=== PATIENT | female | born 1970 | race Caucasian/White ===

== ENCOUNTER 2017-08-03 05:50 | Day surgery (SDC) | payer BC ==
[2017-08-02 11:00] LABS: HEMATOCRIT 43.7 % (34.6-47.8); HEMOGLOBIN 15.1 g/dL (11.7-16.4); WHITE BLOOD COUNT 4.5 x10^3/uL (3.4-10)
[~2017-08-03] VITALS: Ht 167.6 cm; Wt 63.8 kg
[~2017-08-03 05:50] MED LIST: None per pt
[2017-08-03] MEDS ORDERED: GABAPENTIN 300 MG CAPSULE PO ONE (06:11)
[2017-08-03] MEDS ORDERED: LACTATED RINGERS 1,000 ML IV SCH (06:11)
[2017-08-03] MEDS ORDERED: ACETAMINOPHEN 500 MG TABLET PO ONE (06:11)
[2017-08-03 06:24] VITALS: BP 121/91
[2017-08-03 06:41] LABS: HCG UR LOT HCG7030192
[2017-08-03 06:57] LABS: HCG UR OBC PASS
[2017-08-03] MEDS ORDERED: KETAMINE 10 MG/ML, 20ML ONE ×2 (07:00→07:23)
[2017-08-03] MEDS ORDERED: MIDAZOLAM 1 MG/ML, 2ML ONE ×2 (07:00→07:23)
[2017-08-03] MEDS ORDERED: FENTANYL PF 100 MCG/2ML ONE ×4 (07:00→10:06)
[2017-08-03] MEDS ORDERED: LIDOCAINE-MPF 2% ,5ML ONE ×2 (07:02)
[2017-08-03] MEDS ORDERED: PROPOFOL 10 MG/ML, 20ML ONE ×2 (07:02→07:23)
[2017-08-03] MEDS ORDERED: ROCURONIUM 10 MG/ML,10ML ONE ×2 (07:02→07:23)
[2017-08-03] MEDS ORDERED: FLUORESCEIN SODIUM 500 MG/5 ML ONE (07:04)
[2017-08-03] MEDS ORDERED: BUPIVACAINE/PF 0.25% ONE (07:04)
[2017-08-03] MEDS ORDERED: EPHEDRINE 50 MG/ML, 1ML ONE ×3 (07:23→08:08)
[2017-08-03] MEDS ORDERED: NEOSTIGMINE 1 MG/ML, 10ML ONE (07:23)
[2017-08-03] MEDS ORDERED: ONDANSETRON 2MG/ML, 2ML ONE (07:23)
[2017-08-03] MEDS ORDERED: DEXAMETHASONE 4 MG/ML, 1ML ONE (07:23)
[2017-08-03] MEDS ORDERED: CEFAZOLIN 1,000 MG ONE (07:23)
[2017-08-03] MEDS ORDERED: GLYCOPYRROLATE 0.2MG/1ML, 5ML ONE ×3 (07:23→08:03)
[2017-08-03] MEDS ORDERED: BUPIVACAINE/PF 0.25% INFIL ONE (08:04)
[2017-08-03] MEDS ORDERED: MEPERIDINE/PF 25MG/0.5ML IVPush PRN (08:30)
[2017-08-03] MEDS ORDERED: DIAZEPAM 5 MG/ML, 2ML IVPush PRN (08:30)
[2017-08-03] MEDS ORDERED: PROMETHAZINE 25 MG/ML, 1ML IV PRN (08:30)
[2017-08-03] MEDS ORDERED: OXYcodone 5 MG/5 ML ORAL.SOL UDC PO PRN (08:30)
[2017-08-03] MEDS ORDERED: HYDROmorphone 1 MG/ML, 1ML IV PRN (08:30)
[2017-08-03] MEDS ORDERED: ACETAMINOPHEN 650 MG/20.3 ML UDC ONE (10:05)
[2017-08-03] MEDS ORDERED: OXYcodone 5 MG/5 ML ORAL.SOL UDC ONE (10:05)
[2017-08-03] MEDS: FENTANYL PF 100 MCG/2ML IV PRN ×2 (10:10→10:20)
[2017-08-03] MEDS ORDERED: OXYcodone/APAP 5/325MG TABLET ONE (13:45)
[2017-08-03] MEDS ORDERED: OXYcodone/APAP 5/325MG TABLET PO PRN (14:00)
[2017-08-03 14:34] LABS: HEMATOCRIT 37.9 % (34.6-47.8); HEMOGLOBIN 12.9 g/dL (11.7-16.4); WHITE BLOOD COUNT 10.3 x10^3/uL (3.4-10)
[2017-08-03 14:35] LABS: DIFF TOTAL CELLS COUNTED 100 CELL DIFF
[2017-08-03 15:16] LABS: VERIFY COUNTS? YES
[2017-08-03 15:17] LABS: OVALOCYTES 1+
== END 2017-08-03 15:45 ==
LOC: OUT 05:50
PROVIDERS: ATTEND Obstetrics & Gynecology
DX: D25.9 Leiomyoma of uterus, unspecified (principal); I10 Essential (primary) hypertension; Z98.890 Other specified postprocedural states; Z91.040 Latex allergy status
CPT/HCPCS: 36415; 52000; 58552; 81003; 81025; 85025; 86850; 86900; 88307; 93005; J0690; J1100; J2250; J2405; J2704; J2710; J3010; J3490; J7120